=== PATIENT | female | born 1950 | race American Indian/Alaskan Native ===

== ENCOUNTER 2017-10-28 08:05 | Day surgery (SDC) | payer MEDICARE, OTHER ==
[2017-10-26 08:12] VITALS: BMI 38.4
[2017-10-28] MEDS ORDERED: Propofol 10 mg/ml Inj (20 ML) ONE (09:22)
[2017-10-28 10:08] VITALS: TEMP 97.2; O2SAT 100
[2017-10-28 10:25] VITALS: PULSE 61
[2017-10-28 11:08] VITALS: BP 142/73; RESP 14
== END 2017-10-28 11:05 | disposition home or self-care (01) ==
LOC: C.ENDO 08:05
PROVIDERS: ATTEND Internal Medicine Gastroenterology
DX: D12.2 Benign neoplasm of ascending colon (principal); K64.8 Other hemorrhoids; K57.90 Diverticulosis of intestine, part unspecified, without perforation or abscess without bleeding; D12.3 Benign neoplasm of transverse colon; D12.5 Benign neoplasm of sigmoid colon
CPT/HCPCS: 45388; 82948; 88305; J2001; J2704

== ENCOUNTER 2018-12-15 09:10 | Outpatient (CLI) | payer MEDICARE, OTHER | END 2018-12-15 09:11 | disposition home or self-care (01) | LOC: C.MAMMO 09:10 | DX: Z12.31 Encounter for screening mammogram for malignant neoplasm of breast (principal) ==